=== PATIENT | female | born 1980 | race Caucasian/White ===

== ENCOUNTER 2018-12-16 17:27 | Emergency (ER) | payer OTHER ==
[~2018-12-16] VITALS: Ht 165.1 cm; Wt 110.2 kg
--- NOTE | 2018-12-16 18:05 | NUR ---
38 F BIBA C/O SYNCOPE EPISODE. 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 PT DOES NOT KNOW IF SHE HIT HER HEAD, NO SIGNS OF TRAUMA. MEDHX:HTN, EPILEPSY, BRAIN TUMOR, DEPRESSION, ANXIETY, VERTIGO
--- NOTE | 2018-12-16 19:13 | NUR ---
Patient discharged with v/s stable. Written and verbal after care instructions given and explained. Patient verbalized understanding. Ambulatory with steady gait. All questions addressed prior to discharge. Advised to follow up with PMD.
[2018-12-16 19:14] VITALS: BP 131/74
== END 2018-12-16 19:13 | disposition home or self-care (01) ==
LOC: MED 17:27
DX: B34.9 Viral infection, unspecified (principal); R55 Syncope and collapse; G40.909 Epilepsy, unspecified, not intractable, without status epilepticus; Z88.0 Allergy status to penicillin; Z88.2 Allergy status to sulfonamides
CPT/HCPCS: 81002; 81025; 93005; 99283

== ENCOUNTER 2019-02-21 13:39 | Emergency (ER) | payer OTHER ==
[~2019-02-21] VITALS: Ht 162.6 cm; Wt 108.9 kg
--- NOTE | 2019-02-21 13:49 | NUR ---
PT TO ER BED 8
[2019-02-21 13:56] VITALS: BP 141/73
--- NOTE | 2019-02-21 14:00 | NUR ---
PT PRESENTS TO ED WITH C/O EPIGASTRIC PAIN X 3 DAYS DESCRIBED BURNING SENSATION. +NAUSEA; DENIES VOMITING EPISODES, FEVER OR DIARRHEA. LBM 02/21/19. LAST MENTRUAL PERIOD "6 WEEKS AGO". PT STATES PAIN IS 10/10 AT THIS TIME; ASSISTED TO A GOWN, CONNECTED TO MONITOR. ER MD TO EVALUATE PT.
--- NOTE | 2019-02-21 14:14 | NUR ---
DR KO EVALUATING PT AT BEDSIDE.
[2019-02-21] MEDS ORDERED: LIDOCAINE VISCOUS 2% 20 ML UDC PO ONE (14:20)
[2019-02-21] MEDS ORDERED: DICYCLOMINE HCL LIQUID 10 MG/5 ML UDC PO ONE (14:20)
[2019-02-21] MEDS ORDERED: ONDANSETRON 4 MG ODT PO ONE (14:20)
[2019-02-21] MEDS ORDERED: ALUMINUM HYD/MAG/SIMETHICONE 30 ML UDC PO ONE (14:20)
[2019-02-21 14:57] LABS: BASOPHILS % (AUTO) 0.3 % (0.0-2.0); EOSINOPHILS # (AUTO) 0.1 K/uL (0-0.4); EOSINOPHILS % (AUTO) 1.7 % (0.0-4.0); HEMATOCRIT 39.7 % (36-48); HEMOGLOBIN 13.1 g/dL (12.0-16.0); LYMPHOCYTES # (AUTO) 2.6 K/uL (2.5-16.5); LYMPHOCYTES % (AUTO) 30.6 % (20.5-51.1); MEAN CORPUSCULAR HEMOGLOBIN 29 pg (27-31); MEAN CORPUSCULAR HGB CONC 33 g/dL (33-37); MONOCYTES # (AUTO) 0.6 K/uL (0.8-1.0); MONOCYTES % (AUTO) 6.6 % (1.7-9.3); NEUTROPHILS # (AUTO) 5.1 K/uL (1.8-7.7); NEUTROPHILS % (AUTO) 60.8 % (42.2-75.2); PLATELET COUNT (AUTO) 282 K/uL (140-450); RED BLOOD CELL COUNT(AUTO) 4.51 MIL/uL (4.20-5.40); RED CELL DISTRIBUTION WIDTH 13.3 % (11.6-13.7); WHITE BLOOD COUNT (AUTO) 8.4 K/uL (4.8-10.8)
[2019-02-21 15:01] LABS: ANION GAP 13.9 (8-16); CARBON DIOXIDE 24.9 mmol/L (21-32); CREATININE 0.9 mg/dL (0.6-1.3); POTASSIUM 3.8 mmol/L (3.5-5.1)
[2019-02-21 15:02] LABS: APPEARANCE,URINE HAZY (CLEAR); BILIRUBIN,URINE NEGATIVE (NEGATIVE); BLOOD, URINE NEGATIVE (NEGATIVE); COLOR,URINE YELLOW (YELLOW); LEUKOCYTE ESTERASE ,URINE NEGATIVE (NEGATIVE); NITRITE, URINE NEGATIVE (NEGATIVE); PH,URINE 7.5 (5.0-9.0); UGLUCOSE NEGATIVE (NEGATIVE)
[2019-02-21 15:08] LABS: ALBUMIN 3.4 g/dL (3.4-5.0); TOTAL BILIRUBIN 0.3 mg/dL (0.0-1.0)
[2019-02-21] MEDS ORDERED: NACL 0.9% 1,000 ML IV ONE ×2 (16:05→17:55)
--- NOTE | 2019-02-21 16:36 | NUR ---
PT TAKEN TO CT VIA GURNEY BY [employer].
--- NOTE | 2019-02-21 16:47 | NUR ---
PT BACK FROM CT
[2019-02-21 18:44] VITALS: BP 113/67
--- NOTE | 2019-02-21 18:45 | NUR ---
Patient discharged with v/s stable. Written and verbal after care instructions given and explained. Patient alert, oriented and verbalized understanding of instructions. Ambulatory with steady gait. All questions addressed prior to discharge. ID band removed. Patient advised to follow up with PMD. Rx of Carafate and Protonix given. Patient educated on indication of medication including possible reaction and side effects. Opportunity to ask questions provided and answered.
== END 2019-02-21 18:45 | disposition home or self-care (01) ==
LOC: MED 13:39
DX: K29.70 Gastritis, unspecified, without bleeding (principal); F41.9 Anxiety disorder, unspecified; F32.9 Major depressive disorder, single episode, unspecified; G40.909 Epilepsy, unspecified, not intractable, without status epilepticus; Z88.0 Allergy status to penicillin; Z88.2 Allergy status to sulfonamides
CPT/HCPCS: 36415; 74176; 76705; 80053; 81003; 81025; 83690; 84703; 85025; 96360; 96361; 99284; J7030; Q0092; Q0162